=== PATIENT | male | born 1955 | race Caucasian/White ===

== ENCOUNTER → 2021-06-08 13:55 | Outpatient (BNVA) | payer MEDICARE, OTHER, SELFPAY | PROVIDERS: PCP Internal Medicine; Visit Provider Anesthesiology | DX: K86.1 Other chronic pancreatitis (principal); M54.50 Low back pain, unspecified; M96.1 Postlaminectomy syndrome, not elsewhere classified; M16.0 Bilateral primary osteoarthritis of hip; G89.4 Chronic pain syndrome | CPT/HCPCS: 99202 ==

== ENCOUNTER 2021-06-21 13:04 | Outpatient (REF) | payer MEDICARE, OTHER, SELFPAY ==
--- NOTE | ~2021-06-21 | MR_ITS ---
EXAMINATION: MR LUMBAR SPINE WITHOUT AND WITH CONTRAST CLINICAL INFORMATION: Postlaminectomy syndrome. COMPARISON: None TECHNIQUE: MRI of the lumbar spine was obtained using routine sequences without and with intravenous contrast. A total of 10 mL Gadavist was intravenously administered. FINDINGS: The lumbar vertebral bodies maintain normal heights. There is mild retrolisthesis of L4 on L5. Multilevel intervertebral disc height loss is noted and appears severe at L5-S1 and moderate L3-L4 and L4-L5. Mild amount of edema is seen at the superior endplate of L4. The distal spinal cord appears normal. The conus medullaris terminates normally at the L1 level. There is no abnormal cauda equina nerve root enhancement. The visualized paraspinal muscles and intra-abdominal and pelvic contents are within normal limits. SPINAL LEVELS: L1-L2: No posterior disc abnormality. No spinal canal or neural foraminal stenosis. L2-L3: Mild disc bulging. No spinal canal or neural foraminal stenosis. L3-L4: Disc bulging with moderate facet arthropathy. Mild spinal canal stenosis. Bulging disc extends into the neural foramina and results in mild compression of both exiting L3 nerve roots. L4-L5: Posterior decompression. No spinal canal stenosis. Disc bulging with facet arthropathy. 5 mm right-sided synovial facet cyst compresses the traversing right L5 nerve root. Bulging disc within the neural foramina results in mild compression of the exiting right more than left L4 nerve roots. L5-S1: Disc bulging with facet arthropathy. No spinal canal stenosis. Bulging disc results in mild compression of both exiting L5 nerve roots. MR/MR lumbar spine wo/w con IMPRESSION: At L3-L4 there is mild spinal canal stenosis and mild compression of both exiting L3 nerve roots. At L4-L5 there is a 5 mm right-sided noted facet cyst which compresses the traversing right L5 nerve root. Mild compression of both exiting L4 nerve roots. At L5-S1 there is mild compression of both exiting L5 nerve roots.
[2021-06-21 13:08] LABS: Anion Gap 12 (12-20); Blood Urea Nitrogen 23 mg/dL (9-16); Calcium 9.7 mg/dL (8.4-10.2); Carbon Dioxide 26 mmol/L (22-29); Chloride 106 mmol/L (96-108); Estimated Glomerular Filt Rate 54; Glucose Random 124 mg/dL (60-115); Potassium 4.5 mmol/L (3.3-5.1); Sodium 139 mmol/L (135-145)
== END 2021-06-21 13:05 | disposition home or self-care (01) ==
LOC: HO.MRI 13:04
PROVIDERS: PCP Internal Medicine; Visit Provider Anesthesiology
DX: M96.1 Postlaminectomy syndrome, not elsewhere classified (principal); G89.4 Chronic pain syndrome
CPT/HCPCS: 36415; 72158; 80048; A9585

== ENCOUNTER → 2021-07-06 14:24 | Outpatient (BNVA) | payer MEDICARE, OTHER, SELFPAY | PROVIDERS: PCP Internal Medicine; Visit Provider Anesthesiology | DX: K86.1 Other chronic pancreatitis (principal); M54.50 Low back pain, unspecified; M96.1 Postlaminectomy syndrome, not elsewhere classified; M16.0 Bilateral primary osteoarthritis of hip; G89.4 Chronic pain syndrome; F10.21 Alcohol dependence, in remission; F14.90 Cocaine use, unspecified, uncomplicated; F12.90 Cannabis use, unspecified, uncomplicated | CPT/HCPCS: Q3014 ==

== ENCOUNTER 2021-10-21 16:14 | Outpatient (REF) | payer OTHER, SELFPAY ==
--- NOTE | ~2021-10-21 | US_ITS ---
EXAMINATION: Ultrasound of right groin CLINICAL INFORMATION: Swelling/lump. Pain. COMPARISON: None TECHNIQUE: Grayscale ultrasound and color Doppler exam of the right groin. FINDINGS: No evidence of inguinal hernia. No fluid collection or inflammation. There are morphologically normal-appearing lymph nodes with fatty erwin in the right groin. Largest having a short axis diameter of about 6 mm. No abnormal mass. US/US pelvic limited IMPRESSION: No abnormality in the right groin. No abnormal mass. No hernia. No inflammation or fluid collection.
== END 2021-10-21 16:15 | disposition home or self-care (01) ==
LOC: HO.US 16:14
PROVIDERS: Visit Provider Nurse Practitioner Family
DX: R19.09 Other intra-abdominal and pelvic swelling, mass and lump (principal)
CPT/HCPCS: 76857

== ENCOUNTER → 2021-11-07 09:28 | Outpatient (BNVA) | payer OTHER, SELFPAY | PROVIDERS: PCP Nurse Practitioner Family; Referring Provider Nurse Practitioner Family; Visit Provider Surgery | DX: K40.90 Unilateral inguinal hernia, without obstruction or gangrene, not specified as recurrent (principal); K59.00 Constipation, unspecified; K21.9 Gastro-esophageal reflux disease without esophagitis; M10.9 Gout, unspecified; M96.1 Postlaminectomy syndrome, not elsewhere classified; M54.50 Low back pain, unspecified; G89.4 Chronic pain syndrome; I10 Essential (primary) hypertension; Z87.19 Personal history of other diseases of the digestive system | CPT/HCPCS: 99202 ==

== ENCOUNTER 2021-12-07 07:58 | Outpatient (REF) | payer OTHER, SELFPAY ==
[2021-12-07 08:15] LABS: MANUAL DIFF FLAG NO
[2021-12-07 08:56] LABS: Basophils Percent Auto 0.4 % (0-2); Eosinophils Absolute Auto 0.2 X10*3/uL (0.0-0.4); Eosinophils Percent Auto 3.8 % (0-4); Hematocrit 39.9 % (42.0-52.0); Hemoglobin 13.6 g/dl (14.0-18.0); Imm Gran Abs Auto 0.01 X10*3/uL (0.00-0.03); Imm Gran Pct Auto 0.2 % (0.0-0.4); Lymphocytes Absolute Auto 1.3 X10*3/uL (1.2-4.9); Lymphocytes Percent Auto 26.3 % (20-40); Mean Corpuscular HGB Conc 34.1 g/dl (31.0-36.0); Mean Corpuscular Hemoglobin 30.2 pg (27.0-33.0); Mean Corpuscular Volume 88.7 fL (80.0-98.0); Mean Platelet Volume 10.1 fL (9.4-12.4); Monocytes Absolute Auto 0.5 X10*3/uL (0.1-1.2); Monocytes Percent Auto 10.3 % (2-11); Neutrophils Absolute Auto 2.8 x10*3/uL (2.0-8.3); Platelet Count 201 X10*3/uL (160-400); Red Cell Distribution Width 13.2 % (11.0-16.0); White Blood Count 4.8 X10*3/uL (4.8-10.8)
[2021-12-07 09:17] LABS: Alanine Aminotransferase 26 U/L (0-40); Albumin Level 4.5 g/dL (3.5-5.0); Alkaline Phosphatase 106 U/L (39-117); Anion Gap 11 (12-20); Aspartate Amino Transferase 27 U/L (5-37); Bilirubin Total 0.6 mg/dL (0.0-1.0); Blood Urea Nitrogen 17 mg/dL (9-16); Calcium 9.3 mg/dL (8.4-10.2); Carbon Dioxide 25 mmol/L (22-29); Chloride 108 mmol/L (96-108); Cholesterol 215 mg/dL; Estimated Glomerular Filt Rate 58; Gamma Glutamyl Transpeptidase 68 U/L (11-51); Glucose Fasting 90 mg/dL (60-99); HDL Cholesterol 43 mg/dL; LDL Cholesterol Calculated 159 mg/dl; Potassium 4.4 mmol/L (3.3-5.1); Sodium 140 mmol/L (135-145); Total Protein 7.1 g/dL (6.5-8.0); Triglycerides 66 mg/dL; Uric Acid 8.7 mg/dL (3.4-7.0)
[2021-12-07 09:27] LABS: Prostate Specific Antigen Scr 1.12 ng/mL (<0.05-4.0)
== END 2021-12-07 07:59 | disposition home or self-care (01) ==
LOC: HO.LAB 07:58
PROVIDERS: PCP Nurse Practitioner Family; Visit Provider Nurse Practitioner Family
DX: I10 Essential (primary) hypertension (principal); E78.00 Pure hypercholesterolemia, unspecified; K86.1 Other chronic pancreatitis; M10.9 Gout, unspecified; G89.4 Chronic pain syndrome; M54.50 Low back pain, unspecified; Z12.5 Encounter for screening for malignant neoplasm of prostate; Z76.89 Persons encountering health services in other specified circumstances
CPT/HCPCS: 36415; 80053; 80061; 82977; 84153; 84550; 85025

== ENCOUNTER → 2021-12-12 09:34 | Outpatient (BNVA) | payer OTHER, SELFPAY | PROVIDERS: PCP Nurse Practitioner Family; Visit Provider Surgery | DX: K40.90 Unilateral inguinal hernia, without obstruction or gangrene, not specified as recurrent (principal); K59.00 Constipation, unspecified; K21.9 Gastro-esophageal reflux disease without esophagitis; I10 Essential (primary) hypertension; M10.9 Gout, unspecified; M96.1 Postlaminectomy syndrome, not elsewhere classified; G89.4 Chronic pain syndrome; M54.50 Low back pain, unspecified; Z87.19 Personal history of other diseases of the digestive system | CPT/HCPCS: 99212 ==

== ENCOUNTER 2022-10-24 07:53 | Outpatient (REF) | payer MEDICARE, SELFPAY ==
--- NOTE | ~2022-10-24 | US_ITS ---
EXAMINATION: US ABDOMEN LIMITED CLINICAL INFORMATION: Abdominal discomfort in left upper quadrant. COMPARISON: None available. TECHNIQUE: Real-time imaging of the abdominal viscera. FINDINGS: PANCREAS: Largely obscured by bowel gas. Where visualized appears atrophic. LEFT KIDNEY: Trace nonspecific perinephric fat stranding. No hydronephrosis. No renal calculi or focal parenchymal lesions. The kidney measures 10.7 cm in maximum dimension. SPLEEN: Normal. The spleen measures 11.2 cm in maximum dimension. FREE FLUID: None. US/US abdomen limited IMPRESSION: Pancreas is largely obscured by bowel gas limiting evaluation. Where visualized pancreas appears atrophic. Nonspecific trace left perinephric fat stranding.
[2022-10-24 08:29] LABS: MANUAL DIFF FLAG NO
[2022-10-24 08:43] LABS: Basophils Percent Auto 0.3 % (0-2); Eosinophils Absolute Auto 0.2 X10*3/uL (0.0-0.4); Hematocrit 45.6 % (42.0-52.0); Hemoglobin 15.6 g/dl (14.0-18.0); Imm Gran Abs Auto 0.02 X10*3/uL (0.00-0.03); Imm Gran Pct Auto 0.3 % (0.0-0.4); Lymphocytes Absolute Auto 1.5 X10*3/uL (1.2-4.9); Lymphocytes Percent Auto 24.1 % (20-40); Mean Corpuscular HGB Conc 34.2 g/dl (31.0-36.0); Mean Corpuscular Hemoglobin 30.8 pg (27.0-33.0); Mean Corpuscular Volume 90.1 fL (80.0-98.0); Mean Platelet Volume 9.8 fL (9.4-12.4); Monocytes Absolute Auto 0.6 X10*3/uL (0.1-1.2); Monocytes Percent Auto 9.2 % (2-11); Neutrophils Absolute Auto 3.8 x10*3/uL (2.0-8.3); Neutrophils Percent Auto 63.1 % (45-73); Platelet Count 203 X10*3/uL (160-400); Red Blood Count 5.06 X10*6/uL (4.60-5.80); Red Cell Distribution Width 12.7 % (11.0-16.0); White Blood Count 6.1 X10*3/uL (4.8-10.8)
[2022-10-24 09:15] LABS: Alanine Aminotransferase 39 U/L (0-40); Albumin Level 4.8 g/dL (3.5-5.0); Alkaline Phosphatase 96 U/L (39-117); Anion Gap 14 (12-20); Aspartate Amino Transferase 35 U/L (5-37); Bilirubin Total 0.9 mg/dL (0.0-1.0); Blood Urea Nitrogen 24 mg/dL (9-16); Carbon Dioxide 26 mmol/L (22-29); Chloride 106 mmol/L (96-108); Cholesterol 232 mg/dL; Estimated Glomerular Filt Rate 59; Glucose Fasting 99 mg/dL (60-99); HDL Cholesterol 48 mg/dL; LDL Cholesterol Calculated 169 mg/dl; Lipase 11 U/L (8-78); Potassium 4.9 mmol/L (3.3-5.1); Rheumatoid Factor < 13.0 IU/mL (<15.0); Sodium 141 mmol/L (135-145); Total Protein 7.5 g/dL (6.5-8.0); Triglycerides 79 mg/dL
[2022-10-24 09:28] LABS: TSH reflex Free T4 2.51 uIU/mL (0.32-4.0); Vitamin D 25-OH Total 16.5 ng/mL (>30)
[2022-10-28 13:44] LABS: Anti Nuclear Antibody Screen NEGATIVE (NEGATIVE)
== END 2022-10-24 07:54 | disposition home or self-care (01) ==
LOC: HO.US 07:53
PROVIDERS: PCP Nurse Practitioner Family; Visit Provider Nurse Practitioner Family
DX: R10.12 Left upper quadrant pain (principal); I10 Essential (primary) hypertension; Z87.19 Personal history of other diseases of the digestive system; E55.9 Vitamin D deficiency, unspecified; E78.5 Hyperlipidemia, unspecified; K21.9 Gastro-esophageal reflux disease without esophagitis; M54.50 Low back pain, unspecified; M96.1 Postlaminectomy syndrome, not elsewhere classified
CPT/HCPCS: 36415; 76705; 80053; 80061; 82306; 83690; 84443; 85025; 86038; 86039; 86431

== ENCOUNTER 2023-01-02 14:58 | Outpatient (AMB) | payer MEDICARE, SELFPAY ==
--- NOTE | 2023-01-02 15:01 | A.OFFVIS_ITS ---
Intake Vital Signs 01/02/23 15:07 Height 5 ft 11 in Weight 200 lb 9.93 oz BMI 28.0 BP 132/69 Blood Pressure Location Lt brachial Pulse 84 Intake Visit Reasons: constipation Intake Note: Giles presents in the office as a new patient for constipation. 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 Pt reports hospital admission in 2020 to [facility] for hole in the pancreas - based on his description sounds like an episode of necrotizing pancreatitis. Reports months of diarrhea after that which has now resolved and in fact now the issue is constipation. He is taking 5 tabs of senna to help him go to the bathroom with which he is able to go every day but stool is hard and has to strain considerably. Diet is mostly meat and potatoes does drink at least 80- 100 oz of fluids per day. No abd pain, N,V, blood in stool. No fam hx of CRC. Last colo was in 2018 per his report but hes not sure if he had polyps. Last etOH use 2020. Does not use cocaine or cannabis anymore either. [facility] Medical History Back pain Chronic pain syndrome Constipation Encounter to establish care Gassiness Gout Groin lump Groin lump HTN (hypertension) Inguinal hernia Kidney disease Low back pain Postlaminectomy syndrome Surgical History History of back surgery History of cataract surgery History of colonoscopy Family History Other Substance use disorder Social History Housing: Apartment Alcohol intake: former Patient Tobacco Use Status: Never used Tobacco e-Cigarette/Vaping Use: Never Used Second Hand Smoke Exposure: No service: No Current occupational status: employed and disabled Current occupation: [employer] Current occupational exposures/hazards: No Cognitive needs: No Hearing needs: No Vision needs: No Review of Systems Const All systems reviewed & are unremarkable except as noted in HPI and below Physical Exam Vital Signs: Last Vital Signs Pulse 84 01/02/23 15:07 BP 132/69 01/02/23 15:07 BMI result Body Mass Index 28.0 Gen appear: NAD HEENT: nonicteric, no cervical lymphadenopathy Chest: CTA CVS: Regular S1/S2 Abd: soft, nontender, nondistended, bowel sounds + Ext: no peripheral edema Neuro: A/Ox3, noted to move all extremities spontaneously Psych: interacting appropriately Assessment & Plan Assessment & Plan (1) Constipation: Code(s): K59.00 - Constipation, unspecified (2) History of pancreatitis: Code(s): Z87.19 - Personal history of other diseases of the digestive system (3) Chronic kidney disease: Code(s): N18.9 - Chronic kidney disease, unspecified Plan Discussed with the pt that chronic panc typically leads to diarrhea as opposed to constipation. Main issue appears to be dietary factors leading to constipation so would strongly recommend addition of fiber. Can also take Miralax 17g mixed in 8oz water as needed Once BMs are regular, would advise decreasing Senna use as that is a stimulant laxative. He will also be scheduled for a colonoscopy for change in bowel habits. Split PEG prep instructions were reviewed and handout was provided. Of note pt was noted to have CKD since at least 2020 and was advised to discuss further eval with his PCP. Sulphate based preps not recommended and therefore not offered. Follow up after colo. Medications: New peg 3350-electrolytes 236-22.74-6.74 -5.86 gram (Golytely) as per split prep instructions, until fecal effluent is clear 240 mL PO Q10M 4,000 mL 0RF colonoscopy Coding Level of Care Code New Pt Level 4 (81166) Diagnoses Constipation K59.00 History of pancreatitis Z87.19 Chronic kidney disease N18.9
[2023-01-02 15:07] VITALS: BP 132/69; PULSE 84; BMI 28.0
== END 2023-01-02 15:47 | disposition home or self-care (01) ==
PROVIDERS: PCP Nurse Practitioner Family; Visit Provider Internal Medicine
DX: K59.00 Constipation, unspecified (principal); Z87.19 Personal history of other diseases of the digestive system
CPT/HCPCS: 99204

== ENCOUNTER → 2023-01-02 14:58 | Outpatient (BNVA) | payer SELFPAY | PROVIDERS: PCP Nurse Practitioner Family; Visit Provider Internal Medicine ==

== ENCOUNTER 2023-09-04 08:05 | Outpatient (AMB) | payer MEDICARE, MEDICAID, SELFPAY ==
--- NOTE | 2023-09-04 08:38 | A.OFFPC_ITS ---
Vital Signs 09/04/23 08:41 Height 5 ft 11 in Weight 197 lb BMI 27.5 BP 120/70 Blood Pressure Location Lt brachial Position Sitting Pulse 78 Pulse Source Pulse Oximeter Pulse Oximetry (%) 97 Oxygen Delivery Method Room Air Intake Visit Reasons: med visit Intake Note: Patient is here to follow up on Medication review. Grades 1 Thru 5 Teacher Required: No Advice Clerk: Not Required per policy Accompanied by: Self / Same As Patient Allergies erythromycin base Allergy (Intermediate, Verified 09/04/23 09:21) Vomiting ropivacaine [From Naropin] Allergy (Intermediate, Verified 09/04/23 09:21) Vomiting Medication List - Last Reconciled 09/04/23 by Will Alas MD cholecalciferol (vitamin D3) 50 mcg PO DAILY ibuprofen 800 mg PO TID omeprazole 20 mg PO DAILY peg 3350-electrolytes 236-22.74-6.74 -5.86 gram (Golytely) 240 mL PO Q10M sod thiosulfate-salicylic acd 25-1 % (Exoderm) 1 appl topical BID PRN tramadol 50 mg PO BID PRN Tobacco use date assessed: 09/04/23 Fall risk assessment: No Falls in past year Last assessed Fall Risk: 09/04/23 Dental Screening Dental Screen Date: 09/04/23 Did you have a dental visit in the last 12 months?: Yes Did you have a dental problem in the last 6 months where you did not have access to dental care?: No Was dental information given to patient?: Patient has dentist HPI med visit HPI Details 68-year-old male presents to the office to discuss his medical condition. I am assuming his care as his primary care provider has left the practice. Patient has history of extensive osteoarthritis and degenerative joint disease of the back. He is taking a combination of tramadol, ibuprofen and CBD for pain control. 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 He would like a refill on all the medications. [facility] Medical History (Updated 09/04/23 @ 09:27 by Will Alas MD) Inguinal hernia Gout Postlaminectomy syndrome Chronic pain syndrome HTN (hypertension) Surgical History (Updated 09/04/23 @ 08:47 by JUDD Rodríguez) History of hernia surgery History of colonoscopy History of cataract surgery History of back surgery Family History Other Substance use disorder Social History Housing: Apartment Alcohol intake: former Patient Tobacco Use Status: Never used Tobacco e-Cigarette/Vaping Use: Never Used Second Hand Smoke Exposure: No service: No Current occupational status: employed and disabled Current occupation: [employer] Current occupational exposures/hazards: No Cognitive needs: No Hearing needs: No Vision needs: No Questionnaire PHQ-9 Over the last 2 weeks, how often have you been bothered by any of the following problems? 1. Little interest or pleasure in doing things: not at all 2. Feeling down, depressed, or hopeless: not at all 3. Trouble falling or staying asleep, or sleeping too much: not at all 4. Feeling tired or having little energy: not at all 5. Poor appetite or overeating: not at all 6. Feeling bad about yourself - or that you are a failure or have let yourself or your family down: not at all 7. Trouble concentrating on things, such as reading the newspaper or watching television: not at all 8. Moving or speaking so slowly that other people could have noticed. Or the opposite - being so fidgety or restless that you have been moving around a lot more than usual: not at all 9. Thoughts that you would be better off or of hurting yourself in some way: not at all Total score: 0 Depression Screening Interpretation: Negative Depression Screening Done: Yes Source: Developed by Drs. Julito Henderson, Jessica Sal, Roque Clement and colleagues, with an educational donna from [employer]. Thrive Questionnaire Date Thrive assessed: 09/04/23 I am a: Patient What is your living situation today?: I have a steady place to live Within the past 12 months, did the food you bought not last and you didn't have the money to get more?: Never true Within the past 12 months, did you worry whether your food would run out before you got money to buy more?: Never true Do you have trouble paying for medicines?: No Do you have trouble getting transportation to medical appointments?: No Do you have trouble paying your heating and electricity bill?: No Do you have trouble taking care of your child, family member or friend?: No Do you have trouble with day-to-day activities such as bathing, preparing meals, shopping, managing finances, etc.?: No Are you currently unemployed and looking for a job?: No Are you interested in more education?: No Currently or been in a relationship where the following occur: no concerns reported THRIVE Score: 0 AUDIT C Alcohol Use Questionnaire (AUDIT-C) 1. How often do you have a drink containing alcohol?: Never Total Score: 0 SUNDAR-7 AMB Questionnaire SUNDAR-7 Date SUNDAR - 7 assessed: 09/04/23 Feeling nervous, anxious, or on edge: 0 = Not at all Not being able to stop or control worryin = Not at all Worrying too much about different things: 0 = Not at all Trouble relaxin = Not at all Being so restless that it is hard to sit still: 0 = Not at all Becoming easily annoyed or irritable: 0 = Not at all Feeling afraid as if something awful might happen: 0 = Not at all Total SUNDAR-7 score (0-4 normal; 5-9 mild; 10-14 moderate; 15-21 severe): 0 Source: Developed by Drs. Julito Henderson, Jsesica Sal, Roque Clement and colleagues, with an educational donna from [employer]. Physical exam (Primary Care) Vital Signs: Last Vital Signs Pulse 78 09/04/23 08:41 BP 120/70 09/04/23 08:41 Pulse Ox 97 09/04/23 08:41 Oxygen Delivery Method Room Air 09/04/23 08:41 Care Plan Goal for BP management: Blood pressure is stable. BMI result Body Mass Index 27.5 Tobacco/Smoking Status: Tobacco use Status Tobacco use date assessed 09/04/23 09/04/23 08:49 Patient Tobacco Use Status Never used Tobacco 09/04/23 08:49 e-Cigarette/Vaping Use Never Used 09/04/23 08:49 PHQ-9: PHQ-9 Score PHQ-9: Total score 0 09/04/23 08:49 Depression Screening Interpretation: Negative Thrive Assessment: Date of Thrive Assessment Date Thrive assessed 09/04/23 09/04/23 08:49 Currently or been in a relationship where the following occur: no concerns reported Const General: cooperative and healthy appearing Nutritional Appearance: well nourished Orientation/consciousness: patient oriented x3 Limitations: no limitations HENMT Head: Yes normal to inspection Eyes General: appearance normal, both eyes and all related structures Neck Neck: Yes normal visual inspection Chest Chest palpation & inspection: normal palpation of entire chest wall Resp Effort & Inspection: normal respiratory effort Neuro General: patient oriented x3 Assessment and Plan Assessment & Plan (1) Postlaminectomy syndrome: Comment: history of L4-5 spinal stenosis underwent L4-5 laminectomy and decompression in 07/2013 myelogram performed on 07/17/2013 showing diffuse lumbar spondylosis worse at L4- 5 level. Code(s): M96.1 - Postlaminectomy syndrome, not elsewhere classified Plan: Patient would like to continue a combination of ibuprofen, CBD and tramadol. He takes 1 tramadol a day when he has not working and 2 a day when he has to go to work. Blood work to check for kidney functions has been ordered. Prescriptions have been ordered for the same. (2) Chronic pain syndrome: Code(s): G89.4 - Chronic pain syndrome Plan: In addition to the back pain patient has extensive osteoarthritis especially in the hands. Continue above regimen. (3) Hypertension: Code(s): I10 - Essential (primary) hypertension Plan: Blood pressure is stable. (4) GERD (gastroesophageal reflux disease): Code(s): K21.9 - Gastro-esophageal reflux disease without esophagitis Plan: Continue the PPI. Medications: Refilled sod thiosulfate-salicylic acd 25-1 % (Exoderm) 1 appl topical BID PRN 120 mL 0RF rash R21 - Rash and other nonspecific skin eruption ibuprofen 800 mg PO TID 30 tabs 0RF M25.50 - Pain in unspecified joint, M96.1 - Postlaminectomy syndrome, not elsewhere classified tramadol 50 mg PO BID PRN 56 tabs 0RF pain G89.4 - Chronic pain syndrome, M96.1 - Postlaminectomy syndrome, not elsewhere classified Coding Level of Care Code Est Pt Level 4 (04039) Diagnoses Postlaminectomy syndrome M96.1 Chronic pain syndrome G89.4 Hypertension I10 GERD (gastroesophageal reflux disease) K21.9
[2023-09-04 08:41] VITALS: BP 120/70; PULSE 78; O2SAT 97; BMI 27.5
== END 2023-09-04 09:21 | disposition home or self-care (01) ==
PROVIDERS: PCP Nurse Practitioner Family; Visit Provider Internal Medicine
DX: G89.4 Chronic pain syndrome (principal); M96.1 Postlaminectomy syndrome, not elsewhere classified; I10 Essential (primary) hypertension; K21.9 Gastro-esophageal reflux disease without esophagitis
CPT/HCPCS: 99214

== ENCOUNTER 2023-11-15 07:39 | Outpatient (REF) | payer MEDICARE, MEDICAID, SELFPAY ==
[2023-11-15 08:04] LABS: Hemoglobin 14.2 g/dl (14.0-18.0); Mean Corpuscular HGB Conc 35.5 g/dl (31.0-36.0); Mean Corpuscular Hemoglobin 31.9 pg (27.0-33.0); Mean Corpuscular Volume 89.9 fL (80.0-98.0); Mean Platelet Volume 9.7 fL (9.4-12.4); Platelet Count 197 X10*3/uL (160-400); Red Blood Count 4.45 X10*6/uL (4.60-5.80); Red Cell Distribution Width 12.3 % (11.0-16.0); White Blood Count 5.4 X10*3/uL (4.8-10.8)
[2023-11-15 08:16] LABS: Appearance Urine Clear; Color Urine Yellow; Glucose Urine UA Negative (Negative); Leukocyte Esterase Urine Negative (Negative); Nitrite Urine Negative (Negative); UMIC TRIGGER UA YES; Urine Blood Negative (Negative); Urine Ketones Negative (Negative); Urine Protein 30 (1+) mg/dL (Neg-Trace)
[2023-11-15 08:22] LABS: Bacteria Urine None Seen (None Seen); Hyaline Casts Urine 0-2 /LPF (0-2); RBC Urine 0-2 /HPF (0-2); Squamous Epithelial Cell Urine 0-2 /HPF (0-2); WBC Urine 0-5 /HPF (0-5)
[2023-11-15 08:48] LABS: Alanine Aminotransferase 26 U/L (0-40); Albumin Level 4.4 g/dL (3.5-5.0); Alkaline Phosphatase 70 U/L (39-117); Anion Gap 12 (12-20); Aspartate Amino Transferase 26 U/L (5-37); Bilirubin Direct 0.2 mg/dL (0.0-0.5); Bilirubin Total 0.6 mg/dL (0.0-1.0); Blood Urea Nitrogen 22 mg/dL (9-16); Calcium 9.6 mg/dL (8.4-10.2); Carbon Dioxide 23 mmol/L (22-29); Chloride 109 mmol/L (96-108); Cholesterol 190 mg/dL (<200); Estimated Glomerular Filt Rate > 60; Glucose Random 100 mg/dL (60-115); HDL Cholesterol 44 mg/dL (>40); LDL Cholesterol Calculated 129 mg/dL (<100); Potassium 4.1 mmol/L (3.3-5.1); Sodium 140 mmol/L (135-145); Total Protein 7.2 g/dL (6.5-8.0); Triglycerides 85 mg/dL (<150)
[2023-11-15 09:05] LABS: Thyroid Stimulating Hormone 2.22 uIU/mL (0.32-4.0)
== END 2023-11-15 07:40 | disposition home or self-care (01) ==
LOC: HO.LAB 07:39
PROVIDERS: PCP Internal Medicine; Visit Provider Internal Medicine
DX: K21.9 Gastro-esophageal reflux disease without esophagitis (principal); M96.1 Postlaminectomy syndrome, not elsewhere classified; G89.4 Chronic pain syndrome
CPT/HCPCS: 36415; 80048; 80061; 80076; 81001; 81003; 84443; 85027

== ENCOUNTER 2023-11-29 13:17 | Outpatient (AMB) | payer MEDICARE, MEDICAID, SELFPAY ==
--- NOTE | 2023-11-29 13:29 | A.OFFPC_ITS ---
Vital Signs 11/29/23 13:30 Height 5 ft 11 in Weight 197 lb BMI 27.5 BP 138/72 Blood Pressure Location Lt brachial Position Sitting Pulse 78 Pulse Source Pulse Oximeter Pulse Oximetry (%) 97 Oxygen Delivery Method Room Air Intake Visit Reasons: 3mth f/u - see comments Intake Note: Patient is here to follow up on HLD, HTN, Chronic pain syndrome . 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 Patient reports that his pain is well controlled with a combination of CBD and tramadol. Text He has a rash on the left foot that he would like evaluated. Symptoms present for the past few months. Symptoms of itching present. Recently had blood work done on would like to know the results. [facility] Medical History Hyperlipidemia Inguinal hernia Gout Postlaminectomy syndrome Chronic pain syndrome HTN (hypertension) Surgical History History of hernia surgery History of colonoscopy History of cataract surgery History of back surgery Family History Other Substance use disorder Social History Housing: Apartment Alcohol intake: former Patient Tobacco Use Status: Never used Tobacco e-Cigarette/Vaping Use: Never Used Second Hand Smoke Exposure: No service: No Current occupational status: employed and disabled Current occupation: [employer] Current occupational exposures/hazards: No Cognitive needs: No Hearing needs: No Vision needs: No Questionnaire Thrive Questionnaire Date Thrive assessed: 09/04/23 SUNDAR-7 AMB Questionnaire SUNDAR-7 Date SUNDAR - 7 assessed: 09/04/23 Source: Developed by Drs. Julito Henderson, Jessica Sal, Roque Clement and colleagues, with an educational donna from [employer]. Physical exam (Primary Care) Vital Signs: Last Vital Signs Pulse 78 11/29/23 13:30 BP 138/72 11/29/23 13:30 Pulse Ox 97 11/29/23 13:30 Oxygen Delivery Method Room Air 11/29/23 13:30 Care Plan Goal for BP management: Blood pressure is in range. BMI result Body Mass Index 27.5 Tobacco/Smoking Status: Tobacco use Status Tobacco use date assessed 11/29/23 11/29/23 13:35 Patient Tobacco Use Status Never used Tobacco 11/29/23 13:35 e-Cigarette/Vaping Use Never Used 11/29/23 13:35 Thrive Assessment: Date of Thrive Assessment Date Thrive assessed 09/04/23 11/29/23 13:35 Const General: cooperative and healthy appearing Nutritional Appearance: well nourished Orientation/consciousness: patient oriented x3 Limitations: no limitations HENMT Head: Yes normal to inspection Eyes General: appearance normal, both eyes and all related structures Neck Neck: Yes normal visual inspection Chest Chest palpation & inspection: normal palpation of entire chest wall Resp Effort & Inspection: normal respiratory effort Skin Other: Foot: Erythematous rash with hyperemic spots. Overlying scales. Neuro General: patient oriented x3 Assessment and Plan Assessment & Plan (1) Low back pain: Code(s): M54.50 - Low back pain, unspecified Plan: Symptoms are well controlled on the current regimen of CBD and tramadol. (2) Hypertension: Code(s): I10 - Essential (primary) hypertension Plan: Blood pressure is in range. Blood work was reviewed. (3) Screening for colon cancer: Code(s): Z12.11 - Encounter for screening for malignant neoplasm of colon Plan: Patient is reluctant to have another colonoscopy done. A Cologuard test has been ordered. (4) Hyperlipidemia: Code(s): E78.5 - Hyperlipidemia, unspecified Plan: Patient declines to take statins. Understands the risks of elevated cholesterol. (5) Rash: Code(s): R21 - Rash and other nonspecific skin eruption Plan: Most likely eczematous in nature. Triamcinolone cream ordered. Medications: New triamcinolone acetonide 0.025% 1 appl topical BID 15 grams 0RF Coding Level of Care Code Est Pt Level 4 (57587) Complex EM visit Add On G2211 Diagnoses Low back pain M54.50 Hypertension I10 Screening for colon cancer Z12.11 Hyperlipidemia E78.5 Rash R21
[2023-11-29 13:30] VITALS: BP 138/72; PULSE 78; O2SAT 97; BMI 27.5
== END 2023-11-29 14:13 | disposition home or self-care (01) ==
PROVIDERS: PCP Internal Medicine; Visit Provider Internal Medicine
DX: M54.50 Low back pain, unspecified (principal); I10 Essential (primary) hypertension; Z12.11 Encounter for screening for malignant neoplasm of colon; E78.5 Hyperlipidemia, unspecified; R21 Rash and other nonspecific skin eruption
CPT/HCPCS: 99214; G2211

== ENCOUNTER 2024-05-14 13:23 | Outpatient (AMB) | payer MEDICARE, MEDICAID, SELFPAY ==
--- NOTE | 2024-05-14 13:27 | A.OFFPC_ITS ---
Vital Signs 05/14/24 13:29 Height 5 ft 11 in Weight 199 lb 2 oz BMI 27.8 BP 130/72 Blood Pressure Location Lt brachial Position Sitting Pulse 72 Pulse Source Pulse Oximeter Pulse Oximetry (%) 98 Oxygen Delivery Method Room Air Intake Visit Reasons: Calf Wound Intake Note: Patient is here to follow up on left lower calf wound. Pt decline flu shot today. 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 Accompanied by: Self / Same As Patient Allergies erythromycin base Allergy (Intermediate, Verified 05/15/24 18:21) Vomiting ropivacaine [From Naropin] Allergy (Intermediate, Verified 05/15/24 18:21) Vomiting Medication List - Last Reconciled 05/15/24 by Will Alas MD cholecalciferol (vitamin D3) 50 mcg PO DAILY ibuprofen 800 mg PO DAILY omeprazole 20 mg PO DAILY tramadol 50 mg PO BID PRN triamcinolone acetonide 0.1% 1 appl topical DAILY Tobacco use date assessed: 05/14/24 Fall risk assessment: No Falls in past year Last assessed Fall Risk: 05/14/24 Dental Screening Dental Screen Date: 09/04/23 HPI HPI Comments History of Present Illness Details 69-year-old male presenting to the clini c for evaluation of a wound to his left lower leg. He reports in January he noticed a possible tick bite versus spider bite to his left lower leg near his ankle. He was putting [id number] antibiotic ointment to this wound. Then around February/March patient reports the wound was getting worse and had redness therefore he went to [facility]. At [facility] he was diagnosed with a cellulitis infection and started on antibiotics. He is unsure what antibiotics he took although he reports it did improve the wound although it did not resolve the wound. He denies any recent falls or trauma, paresthesias, chest pain, shortness of breath, calf tenderness or lower extremity edema. He denies history of nonhealing wounds. Patient requesting refill for ibuprofen 800 for his chronic pains including back pain. Patient is declining influenza vaccine at this time. Patient had a Cologuard in the last year which was normal. Patient denies any other symptoms complaints or concerns at this time. Patient admits to taking all his medications as prescribed. [facility] Medical History (Updated 05/14/24 @ 14:40 by Will Alas MD) Venous ulcer of leg Encounter for colorectal cancer screening using Cologuard test (~01/26/24) Hyperlipidemia Inguinal hernia Gout Postlaminectomy syndrome Chronic pain syndrome HTN (hypertension) Surgical History History of hernia surgery History of colonoscopy History of cataract surgery History of back surgery Family History Other Substance use disorder Social History Housing: Apartment Alcohol intake: former Patient Tobacco Use Status: Never used Tobacco e-Cigarette/Vaping Use: Never Used Second Hand Smoke Exposure: No service: No Current occupational status: employed and disabled Current occupation: [employer] Current occupational exposures/hazards: No Cognitive needs: No Hearing needs: No Vision needs: No Questionnaire Thrive Questionnaire Date Thrive assessed: 09/04/23 SUNDAR-7 AMB Questionnaire SUNDAR-7 Date SUNDAR - 7 assessed: 09/04/23 Source: Developed by Drs. Julito Henderson, Jessica Sal, Roque Clement and colleagues, with an educational donna from [employer]. Review of Systems Const All systems reviewed & are unremarkable except as noted in HPI and below Physical exam (Primary Care) Vital Signs: Last Vital Signs Pulse 72 05/14/24 13:29 BP 130/72 05/14/24 13:29 Pulse Ox 98 05/14/24 13:29 Oxygen Delivery Method Room Air 05/14/24 13:29 BMI result Body Mass Index 27.8 Tobacco/Smoking Status: Tobacco use Status Tobacco use date assessed 05/14/24 05/14/24 13:33 Patient Tobacco Use Status Never used Tobacco 05/14/24 13:33 e-Cigarette/Vaping Use Never Used 05/14/24 13:33 Thrive Assessment: Date of Thrive Assessment Date Thrive assessed 09/04/23 05/14/24 13:33 Const Other: Appearance: Alert. Oriented X3. No acute distress. ? Head: Normal external exam. Normocephalic. Atraumatic.? Eyes: PERRLA. EOMI. Conjunctiva and sclera normal. Eyelids normal. ? ENT: Moist mucous membranes. Normal voice Neck: Normal inspection. Neck supple. FROM. CVS: Normal heart rate and rhythm. Heart sound normal. No murmurs noted. Pulses normal throughout. Respiratory: No respiratory distress. Painless inspiration. Breath sounds normal. No wheezes/rales/rhonchi noted. Chest nontender. ? No accessory muscle usage noted or decreased air movement noted. Back: ? Full range of motion noted. Skin: Skin warm and dry.? Normal skin color.? Normal skin turgor. No rashes/lesions/lacerations noted. Extremities: Ulcerated wound that is 3 cm in length by 2-1/2 cm in width to left lower extremity lateral aspect with nonviable tissue. There is no surrounding erythema, streaking, induration, fluctuance, purulent drainage, foul odor or signs of active infection. There is no calf tenderness noted. Patient has good capillary refill and good pedal pulses. There is no lower extremity edema. Otherwise all other extremities exhibit normal range of motion nonte nder. Neuro: Oriented X 3.? No Focal neuro deficit is noted. Patient has a normal steady gait. Moving all extremities. Coding Level of Care Code Est Pt Level 4 (28366) Diagnoses Venous ulcer of left leg I83.029; L97.929 Chronic pain syndrome G89.4 Venous ulcer of leg I83.009; L97.909 Assessment & Plan Assessment & Plan (1) Venous ulcer of left leg: Code(s): I83.029 - Varicose veins of left lower extremity with ulcer of unspecified site; L97.929 - Non-pressure chronic ulcer of unspecified part of left lower leg with unspecified severity Category: Medical Plan: Chronic venous ulcer of left lower extremity without acute infection. Wound was cleaned with normal saline, dressed with bacitracin, nonadherent dressing with Kerlix. Patient will be referred to vascular surgery, wound clinic. Bactroban will be sent to the patient's pharmacy. Patient instructed to change dressing daily. (2) Chronic pain syndrome: Code(s): G89.4 - Chronic pain syndrome Category: Medical Plan: Condition is stable. Patient will have refill for 800 mg ibuprofen. Patient also taking prescribed tramadol. Reports symptomatic relief when he takes these medications for his chronic pain. (3) Venous ulcer of leg: Code(s): I83.009 - Varicose veins of unspecified lower extremity with ulcer of unspecified site; L97.909 - Non-pressure chronic ulcer of unspecified part of unspecified lower leg with unspecified severity Category: Medical Plan Patient to return 3 months for follow-up visit. Orders: Referrals Wound Care Referral I83.009 - Varicose veins of unspecified lower extremity with ulcer of unspecified site, L97.909 - Non-pressure chronic ulcer of unspecified part of unspecified lower leg with unspecified severity Medications: Refilled ibuprofen 800 mg PO DAILY 90 tabs 0RF M25.50 - Pain in unspecified joint, M96.1 - Postlaminectomy syndrome, not elsewhere classified
[2024-05-14 13:29] VITALS: BP 130/72; PULSE 72; O2SAT 98; BMI 27.8
== END 2024-05-14 14:03 | disposition home or self-care (01) ==
PROVIDERS: PCP Internal Medicine; Visit Provider Internal Medicine
DX: I83.029 Varicose veins of left lower extremity with ulcer of unspecified site (principal); L97.929 Non-pressure chronic ulcer of unspecified part of left lower leg with unspecified severity; I83.009 Varicose veins of unspecified lower extremity with ulcer of unspecified site; L97.909 Non-pressure chronic ulcer of unspecified part of unspecified lower leg with unspecified severity; G89.4 Chronic pain syndrome

== ENCOUNTER → 2024-05-14 13:23 | Outpatient (BNVA) | payer MEDICARE, MEDICAID, SELFPAY | PROVIDERS: PCP Internal Medicine; Visit Provider Internal Medicine | DX: I83.029 Varicose veins of left lower extremity with ulcer of unspecified site (principal); L97.929 Non-pressure chronic ulcer of unspecified part of left lower leg with unspecified severity; G89.4 Chronic pain syndrome | CPT/HCPCS: 99212 ==

== ENCOUNTER 2024-06-05 13:48 | Outpatient (AMB) | payer MEDICARE, MEDICAID, SELFPAY ==
--- NOTE | 2024-06-05 13:54 | A.OFFPC_ITS ---
Vital Signs 06/05/24 13:55 Height 5 ft 11 in Weight 197 lb 2 oz BMI 27.5 BP 128/82 Blood Pressure Location Lt brachial Position Sitting Pulse 73 Pulse Source Pulse Oximeter Pulse Oximetry (%) 98 Oxygen Delivery Method Room Air Intake Visit Reasons: 6mth f/u - see comments Intake Note: Patient is here to follow up on CKD, HLD, Polyarthralgia, HTN. 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 per policy Accompanied by: Self / Same As Patient Allergies erythromycin base Allergy (Intermediate, Verified 06/09/24 14:09) Vomiting ropivacaine [From Naropin] Allergy (Intermediate, Verified 06/09/24 14:09) Vomiting Tobacco use date assessed: 06/05/24 Fall risk assessment: No Falls in past year Last assessed Fall Risk: 06/05/24 Dental Screening Dental Screen Date: 09/04/23 [facility] Medical History Venous ulcer of leg Encounter for colorectal cancer screening using Cologuard test (~01/26/24) Hyperlipidemia Inguinal hernia Gout Postlaminectomy syndrome Chronic pain syndrome HTN (hypertension) Surgical History History of hernia surgery History of colonoscopy History of cataract surgery History of back surgery Family History Other Substance use disorder Social History Housing: Apartment Alcohol intake: former Patient Tobacco Use Status: Never used Tobacco e-Cigarette/Vaping Use: Never Used Second Hand Smoke Exposure: No service: No Current occupational status: employed and disabled Current occupation: [employer] Current occupational exposures/hazards: No Cognitive needs: No Hearing needs: No Vision needs: No Questionnaire Thrive Questionnaire Date Thrive assessed: 09/04/23 SUDNAR-7 AMB Questionnaire SUNDAR-7 Date SUNDAR - 7 assessed: 09/04/23 Source: Developed by Drs. Julito Henderson, Jessica Sal, Roque Clement and colleagues, with an educational donna from [employer]. Physical exam (Primary Care) Vital Signs: Last Vital Signs Pulse 73 06/05/24 13:55 BP 128/82 06/05/24 13:55 Pulse Ox 98 06/05/24 13:55 Oxygen Delivery Method Room Air 06/05/24 13:55 BMI result Body Mass Index 27.5 Tobacco/Smoking Status: Tobacco use Status Tobacco use date assessed 06/05/24 06/05/24 13:57 Patient Tobacco Use Status Never used Tobacco 06/05/24 13:57 e-Cigarette/Vaping Use Never Used 06/05/24 13:57 Thrive Assessment: Date of Thrive Assessment Date Thrive assessed 09/04/23 06/05/24 13:57 Coding Level of Care Code Est Pt Level 3 (72791) Complex EM visit Add On G2211 Diagnoses Wound of left leg S81.802A Assessment & Plan Assessment & Plan (1) Wound of left leg: Code(s): S81.802A - Unspecified open wound, left lower leg, initial encounter Plan History of Present Illness The patient is a 69-year-old male presenting with a leg wound and a chronic skin condition. 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 The wound care strategy has been conservative, with no recent follow-up at a wound clinic. The skin condition, resembling psoriasis, has persisted for years and showed temporary resolution when the patient was hospitalized and treated with antibiotics. Previous treatment with a steroid cream (bethamethasone) was ineffective in managing the rash. The rash re-emerged post-antibiotic treatment. The patient expresses concern about the chronic nature of the rash. Social History - , spouse is a registered nurse with extensive experience. - Utilizes a flip phone and has difficulty managing text messages. - No current employment or other social determinants discussed. Review of Systems - Integumentary: Reports chronic rash. - General: Denies need for pain medication. Physical Exam General: Cooperative and healthy appearing Nutritional Appearance: Well nourished Orientation/consciousness: Patient oriented x3 Limitations: No limitations Head: Normal to inspection General: Appearance normal, both eyes and all related structures Neck: Normal visual inspection Chest: Normal palpation of entire chest wall Respiratory: Normal respiratory effort Neurology: Patient oriented x3 Results Plan - Referral to a solution engineer for a thorough evaluation of the chronic rash that resembles psoriasis. - Discussion of wound care strategies; consideration of using normal saline and Basitracin for the leg wound until specialist evaluation. - Reinforcement of the effectiveness of ointment over cream for chronic skin conditions; explore options like bethamethasone ointment if not previously tried. - No alteration in current pain management plan as the patient reports managing well without analgesics. Patient was informed and verbally consented to the use of an ambient scribe for clinic note documentation during this visit. Discussion Notes I discussed with the patient the likely chronic nature of his skin condition, suggestive of psoriasis, and the ineffectiveness of prior cream treatment. We agreed that referral to a solution engineer is appropriate for further specialized care. I informed him about the properties of ointments in providing longer- lasting skin protection and potential benefits for chronic conditions. Regarding his leg wound, I assured him of the current positive status but suggested monitoring and engaging wound clinic services if necessary. The patient's appreciation of previous care and desire for in-person communication due to phone limitations were acknowledged. Follow-up instructions were provided, with emphasis on seeking further care if symptoms worsen. Patient Instructions - Obtain consultation with a solution engineer for skin evaluation. - Continue applying Basitracin and a Band-Aid to the leg wound as discussed. - Maintain current medication regimen unless otherwise directed. - Stay vigilant about any changes in wound condition and seek prompt medical attention if needed. - Provide feedback on the care and communication preferences next visit.
[2024-06-05 13:55] VITALS: BP 128/82; PULSE 73; O2SAT 98; BMI 27.5
== END 2024-06-05 14:24 | disposition home or self-care (01) ==
PROVIDERS: PCP Internal Medicine; Visit Provider Internal Medicine
DX: S81.802A Unspecified open wound, left lower leg, initial encounter (principal)

== ENCOUNTER → 2024-06-05 13:48 | Outpatient (BNVA) | payer MEDICARE, MEDICAID, SELFPAY | PROVIDERS: PCP Internal Medicine; Visit Provider Internal Medicine | DX: S81.802D Unspecified open wound, left lower leg, subsequent encounter (principal) | CPT/HCPCS: 99212 ==